=== PATIENT | female | born 1940 | race African-American/Black ===

== ENCOUNTER 2024-12-22 03:56 | Inpatient (IN) | payer MEDICARE ==
[~2024-12-22] VITALS: Ht 172.7 cm; Wt 108.9 kg
[2024-12-22 04:00] VITALS: O2SAT 97
[2024-12-22 04:24] LABS: BASOPHILS % 1.2 % (0.0-2.0); EOSINOPHILS % 0.6 % (0.0-5.0); HEMATOCRIT. 31.9 % (36.0-48.0); HEMOGLOBIN. 10.3 g/dL (12.0-16.0); LYMPHOCYTES % 24.5 % (20.0-50.0); MEAN PLATELET VOLUME 7.2 fl (7.4-10.4); MONOCYTES % 7.1 % (2.0-8.0); NEUTROPHILS % 66.6 % (40.0-76.0); PLATELET 178 x1000/uL (130-400); RED BLOOD CELL COUNT 3.81 mill/uL (4.2-5.4); RED CELL DISTRIBUTION WIDTH 17.6 % (11.6-14.6)
[2024-12-22 04:37] LABS: CREATININE 1.1 mg/dL (0.6-1.0)
[2024-12-22 04:38] LABS: TROPONIN I HIGH SENSITIVITY 25 ng/L (3.0-34); UREA NITROGEN BLOOD 19 mg/dL (9-23)
[2024-12-22 04:39] LABS: ASPARTATE AMINOTRANSFERASE 126 IU/L (<34)
[2024-12-22 04:40] LABS: BILIRUBIN DIRECT 0.2 mg/dL (<=3.0); BILIRUBIN TOTAL 0.5 mg/dL (0.1-1.0); PROTEIN TOTAL 6.3 g/dL (6.0-8.3)
[2024-12-22 04:50] LABS: INR 1.0
[2024-12-22] MEDS: MORPHINE SULFATE 2 MG/ML INJ (NOT FOR IM USE) IV ONE (05:15)
[2024-12-22] MEDS ORDERED: ACETAMINOPHEN 325MG TABLET PO PRN (05:30)
[2024-12-22] MEDS ORDERED: DEXTROSE 50% WATER 50ML SYRINGE IV PRN (05:30)
[2024-12-22] MEDS ORDERED: IPRATROPIUM/ALBUTEROL 0.5-3(2.5)MG/3ML NEB HHN PRN (05:30)
[2024-12-22 07:07] LABS: CREATINE KINASE MB FRACTION 0.8 ng/mL (0.5-3.6)
[2024-12-22 07:10] LABS: TROPONIN I HIGH SENSITIVITY 436.0 ng/L (3.0-34)
[2024-12-22 07:30] VITALS: BP 186/102; PULSE 100; RESP 18; TEMP 36.3068
[2024-12-22 08:00] VITALS: BP 186/102; PULSE 100; PULSE 60; RESP 18; TEMP 36.2; TEMP 36.3; O2SAT 100; O2SAT 93
[2024-12-22 08:31] LABS: FOLIC ACID (FOLATE) SERUM 8.38 ng/mL (>5.38); VITAMIN B12 SERUM 415 pg/mL (211-911)
[2024-12-22] MEDS: PANTOPRAZOLE SODIUM 40 MG/VIAL IV SCH (09:36)
[2024-12-22] MEDS: FUROSEMIDE 20MG/2ML VIAL IVP SCH (09:36)
[2024-12-22] MEDS: PREDNISONE 5MG TABLET PO SCH (09:36)
[2024-12-22] MEDS: ENOXAPARIN 40MG/0.4ML SYR SUBCUT SCH (09:37)
[2024-12-22] MEDS: AMLODIPINE 10MG TABLET PO SCH (09:38)
[2024-12-22] MEDS: LEVOTHYROXINE SODIUM 50MCG TABLET PO SCH (09:42)
[2024-12-22 10:22] LABS: CLARITY URINE CLOUDY (CLEAR); COLOR URINE YELLOW (YELLOW); GLUCOSE URINE NEGATIVE (NEGATIVE); KETONES URINE NEGATIVE (NEGATIVE); LEUKOCYTE ESTERASE URINE TRACE (NEGATIVE); NITRITE URINE NEGATIVE (NEGATIVE); OCCULT BLOOD URINE NEGATIVE (NEGATIVE); PH URINE 7.0 (4.5-8.0); PROTEIN URINE NEGATIVE (NEGATIVE); SPECIFIC GRAVITY URINE 1.011 (1.005-1.030); UROBILINOGEN URINE 1.0 E.U./dL (0.2-1.0)
[2024-12-22 10:44] LABS: BACTERIA URINE 4+; SQUAMOUS EPITHELIAL CELL URINE 1+ /lpf (RARE/1+); YEAST URINE NONE SEEN
[2024-12-22 10:53] LABS: *AMPHETAMINES SCREEN URINE NEGATIVE (NEGATIVE); *BARBITURATES SCREEN URINE NEGATIVE (NEGATIVE); *BENZODIAZEPINES SCREEN URINE NEGATIVE (NEGATIVE); *COCAINE SCREEN URINE NEGATIVE (NEGATIVE); CANNABINOID URINE SCREEN NEGATIVE (NEGATIVE); ECSTASY MDMA SCREEN URINE NEGATIVE (NEGATIVE); METHADONE URINE SCREEN NEGATIVE (NEGATIVE); OPIATES URINE SCREEN NEGATIVE (NEGATIVE); PHENCYCLIDINE URINE SCREEN NEGATIVE (NEGATIVE)
[2024-12-22 11:11] LABS: BG BASE EXCESS 3.4 mmol/L (-2.0-3.0); BG CARBOXYHEMOGLOBIN 0.7 % (0.5-1.5); BG DEOXYHEMOGLOBIN 10.5 % (0.0-5.0); BG FLOW(L/min) 2.00 L/min; BG FRACTION INSPIRED OXYGEN 28; BG HCO3 ACT 26.2 mmol/L (21.0-28.0); BG METHEMOGLOBIN 0.3 % (0.5-1.5); BG OXYGEN SATURATION 89.4 % (94.0-98.0); BG OXYHEMOGLOBIN 88.5 % (94.0-98.0); BG PCO2 33.7 mmHg (32.0-45.0); BG PH 7.509 (7.350-7.450); BG PO2 55.0 mmHg (83.0-108.0); BG SAMPLE SITE LEFT RADIAL; BG TOTAL HEMOGLOBIN 11.0 g/dL (12.0-16.0); BG VENT MODE NASAL CANNULA
[2024-12-22 12:00] VITALS: BP 158/90; PULSE 60; RESP 18; TEMP 36.3; O2SAT 100
[2024-12-22] MEDS: ASPIRIN 81MG TABLET PO SCH (13:13)
[2024-12-22] MEDS: ENOXAPARIN 80MG/0.8ML SYR SUBCUT NR (13:13)
[2024-12-22] MEDS: DIPHENHYDRAMINE 50MG CAPSULE PO NR (13:13)
[2024-12-22] MEDS: PREDNISONE 20MG TABLET PO NR ×2 (13:13→20:00)
[2024-12-22] MEDS: LOSARTAN 50 MG TABLET PO SCH (13:15)
[2024-12-22 16:00] VITALS: BP 95/67; PULSE 122; RESP 18; TEMP 36.2; O2SAT 100
[2024-12-22] MEDS ORDERED: DIPHENHYDRAMINE 50MG CAPSULE PO NR (16:30)
[2024-12-22 20:00] VITALS: BP 132/82; PULSE 96; RESP 18; TEMP 36.4; O2SAT 100
[2024-12-22] MEDS: ENOXAPARIN 100MG/ML SYR SUBCUT SCH (20:44)
[2024-12-22] MEDS ORDERED: ENOXAPARIN 120MG/0.8ML SYR SUBCUT SCH (23:00)
[2024-12-23] VITALS: BP 126/84; PULSE 95; RESP 18; TEMP 35.8; O2SAT 95
[2024-12-23 04:00] VITALS: BP 143/63; PULSE 95; RESP 18; TEMP 36.1; O2SAT 95
[2024-12-23 08:00] VITALS: BP 145/89; PULSE 90; RESP 19; TEMP 36.4; O2SAT 97
[2024-12-23 09:13] LABS: BASOPHILS % 0.1 % (0.0-2.0); EOSINOPHILS % 0.0 % (0.0-5.0); HEMATOCRIT. 33.7 % (36.0-48.0); HEMOGLOBIN. 10.9 g/dL (12.0-16.0); LYMPHOCYTES % 11.4 % (20.0-50.0); MEAN PLATELET VOLUME 7.4 fl (7.4-10.4); MONOCYTES % 5.0 % (2.0-8.0); NEUTROPHILS % 83.5 % (40.0-76.0); PLATELET 196 x1000/uL (130-400); RED BLOOD CELL COUNT 4.08 mill/uL (4.2-5.4); RED CELL DISTRIBUTION WIDTH 16.9 % (11.6-14.6)
[2024-12-23 09:36] LABS: T4 FREE 1.3 ng/dL (0.89-1.76)
[2024-12-23 09:38] LABS: CREATININE 1.1 mg/dL (0.6-1.0)
[2024-12-23 09:39] LABS: UREA NITROGEN BLOOD 17.0 mg/dL (9-23)
[2024-12-23 09:41] LABS: ASPARTATE AMINOTRANSFERASE 35 IU/L (<34); BILIRUBIN DIRECT 0.2 mg/dL (<=3.0); BILIRUBIN TOTAL 0.8 mg/dL (0.1-1.0); PROTEIN TOTAL 6.4 g/dL (6.0-8.3)
[2024-12-23] MEDS: PREDNISONE 20MG TABLET PO NR ×3 (11:17→21:02)
[2024-12-23 12:00] VITALS: BP 124/70; PULSE 98; RESP 19; TEMP 36.6; O2SAT 98
[2024-12-23 16:00] VITALS: BP 137/76; PULSE 91; RESP 19; TEMP 36.4; O2SAT 97
[2024-12-23 20:00] VITALS: BP 132/75; PULSE 92; RESP 18; TEMP 36.3; O2SAT 98
[2024-12-23] MEDS: DIPHENHYDRAMINE 50MG CAPSULE PO NR (21:02)
[2024-12-24] VITALS: BP 138/84; PULSE 96; RESP 19; TEMP 36.7; O2SAT 97
[2024-12-24] MEDS ORDERED: IOHEXOL-350 100 ML BOTTLE ONE (00:20)
[2024-12-24 04:00] VITALS: BP 120/76; PULSE 93; RESP 17; TEMP 36.4; O2SAT 100
[2024-12-24 08:00] VITALS: BP 138/70; PULSE 98; RESP 18; TEMP 36.1; O2SAT 99
[2024-12-24] MEDS: ACETAMINOPHEN 325MG TABLET PO PRN (11:11)
[2024-12-24 12:00] VITALS: BP 99/51; PULSE 107; RESP 18; TEMP 36.3; O2SAT 95
[2024-12-24] MEDS: LACTULOSE 20G/30ML UDC PO SCH (14:58)
[2024-12-24 16:00] VITALS: BP 110/64; PULSE 100; RESP 18; TEMP 36.4; O2SAT 97
[2024-12-24 20:00] VITALS: BP 102/51; PULSE 100; RESP 18; TEMP 36.4; O2SAT 99
[2024-12-24] MEDS: SULFAMETHOXAZOLE/TRIMETHOPRIM 800/160MG TABLET PO SCH (21:00)
[2024-12-25] VITALS: BP 103/55; PULSE 98; RESP 18; TEMP 36.4; O2SAT 99
[2024-12-25] MEDS: NITROGLYCERIN 0.4MG TABLET SL SL PRN (01:49)
[2024-12-25] MEDS: ONDANSETRON HCL 4MG/2ML INJ IV PRN (01:51)
[2024-12-25] MEDS: SODIUM CHLORIDE 0.9% 500 ML IV ONE ×3 (02:15→02:45)
[2024-12-25] MEDS: MIDODRINE HCL 5MG TABLET PO NR (02:20)
[2024-12-25 02:55] LABS: CREATINE KINASE MB FRACTION 0.8 ng/mL (0.5-3.6)
[2024-12-25 02:59] LABS: TROPONIN I HIGH SENSITIVITY 87.0 ng/L (3.0-34)
[2024-12-25 04:00] VITALS: BP 105/58; PULSE 101; RESP 19; TEMP 36.7; O2SAT 98
[2024-12-25 08:00] VITALS: BP 103/31; PULSE 91; RESP 16; TEMP 35.8; O2SAT 99
[2024-12-25] MEDS: MORPHINE SULFATE 4 MG/ML INJ (FOR IV/IM USE) IV SCH (11:28)
[2024-12-25 12:00] VITALS: BP 80/36; PULSE 85; RESP 16; TEMP 35.9; O2SAT 100
[2024-12-25] MEDS: LIDOCAINE 5% PATCH TOP SCH (15:28)
[2024-12-25 16:00] VITALS: BP 100/49; PULSE 77; RESP 18; TEMP 36.2; O2SAT 98
[2024-12-25] MEDS ORDERED: PANT40TA51 MT (16:08)
[2024-12-25] MEDS ORDERED: OXYB-52 MT (16:08)
[2024-12-25] MEDS ORDERED: VERA80TA7 MT (16:08)
[2024-12-25] MEDS ORDERED: ALBU90AE INH (16:08)
[2024-12-25] MEDS ORDERED: PRED10TA MT (16:08)
[2024-12-25] MEDS ORDERED: FURO-152 MT (16:08)
[2024-12-25] MEDS ORDERED: POTA-202 MT (16:08)
[2024-12-25] MEDS ORDERED: LEVO50TA8 MT (16:08)
[2024-12-25 20:00] VITALS: BP 120/45; PULSE 79; RESP 19; TEMP 36.6; O2SAT 98
[2024-12-26] VITALS: BP 104/44; PULSE 82; RESP 18; TEMP 36.5; O2SAT 99
[2024-12-26 04:00] VITALS: BP 96/54; PULSE 89; RESP 20; TEMP 35.9; O2SAT 100
[2024-12-26] MEDS: SODIUM CHLORIDE 0.9% 1,000 ML IV ONE (06:32)
[2024-12-26 08:00] VITALS: BP 100/46; PULSE 99; RESP 16; TEMP 36.1; O2SAT 95
[2024-12-26 12:00] VITALS: BP 91/33; PULSE 103; RESP 16; TEMP 36.1; O2SAT 99
[2024-12-26] MEDS: SODIUM CHLORIDE 0.9% 1,000 ML IV SCH ×2 (12:18→12:21)
[2024-12-26] MEDS: MIDODRINE HCL 5MG TABLET PO SCH (12:19)
[2024-12-26 16:00] VITALS: BP 106/54; PULSE 101; RESP 16; TEMP 36.2; O2SAT 96
[2024-12-26 20:00] VITALS: BP 107/47; PULSE 102; RESP 20; TEMP 36.7; O2SAT 98
[2024-12-27] VITALS (12 sets, daily range): BP systolic 103–131; BP diastolic 43–60; PULSE 72–96; RESP 16–20; TEMP 36.33624–37.3; O2SAT 89–99
[2024-12-27 13:22] LABS: UREA NITROGEN BLOOD 36.0 mg/dL (9-23)
[2024-12-27 13:45] LABS: MEAN PLATELET VOLUME 7.5 fl (7.4-10.4); PLATELET 162 x1000/uL (130-400); RED BLOOD CELL COUNT 1.91 mill/uL (4.2-5.4); RED CELL DISTRIBUTION WIDTH 17.2 % (11.6-14.6)
[2024-12-27 13:51] LABS: CREATININE 1.5 mg/dL (0.6-1.0)
[2024-12-27 13:54] LABS: HEMOGLOBIN. 5.2 g/dL (12.0-16.0)
[2024-12-27 13:55] LABS: HEMATOCRIT. 16.2 % (36.0-48.0)
[2024-12-27 14:11] LABS: BAND% 6.0 % (1.0-6.0); EOSINOPHILS % MANUAL 1.0 % (0.0-5.0); LYMPHOCYTES % MANUAL 19.0 % (20.0-60.0); METAMYELOCYTES % 1.0 % (0-0); MONOCYTES % MANUAL 3.0 % (2.0-8.0); NEUTROPHILS % MANUAL 70.0 % (45.0-75.0); NUCLEATED RED BLOOD CELLS 3 /100 WBC; PLATELET ESTIMATE NORMAL
[2024-12-27] MEDS: CEFAZOLIN 1000MG PREMIX 50 ML IV SCH (18:25)
[2024-12-28] VITALS (14 sets, daily range): BP systolic 109–150; BP diastolic 52–96; PULSE 72–90; RESP 14–26; TEMP 36.6–37.3; O2SAT 97–100
[2024-12-28 03:51] LABS: CREATININE 1.4 mg/dL (0.6-1.0); UREA NITROGEN BLOOD 26.0 mg/dL (9-23)
[2024-12-28 04:04] LABS: HEMATOCRIT. 24.2 % (36.0-48.0); HEMOGLOBIN. 8.1 g/dL (12.0-16.0); MEAN PLATELET VOLUME 7.4 fl (7.4-10.4); PLATELET 145 x1000/uL (130-400); RED BLOOD CELL COUNT 2.76 mill/uL (4.2-5.4); RED CELL DISTRIBUTION WIDTH 16.2 % (11.6-14.6)
[2024-12-28 13:08] LABS: BAND% 6.0 % (1.0-6.0); LYMPHOCYTES % MANUAL 14.0 % (20.0-60.0); MONOCYTES % MANUAL 6.0 % (2.0-8.0); NEUTROPHILS % MANUAL 74.0 % (45.0-75.0); NUCLEATED RED BLOOD CELLS 2 /100 WBC; PLATELET ESTIMATE NORMAL
[2024-12-28] MEDS: POTASSIUM CHLORIDE 20MEQ TABLET SR PO SCH (16:58)
[2024-12-29] VITALS (13 sets, daily range): BP systolic 126–193; BP diastolic 60–82; PULSE 58–95; RESP 12–26; TEMP 36.2–37.1; O2SAT 95–100
[2024-12-29] MEDS: HYDRALAZINE 20MG/ML VIAL IV PRN (08:31)
[2024-12-29] MEDS: ENOXAPARIN 100MG/ML SYR SUBCUT SCH (13:05)
[2024-12-29] MEDS: LACTULOSE 20G/30ML UDC PO PRN (18:24)
[2024-12-29] MEDS ORDERED: DEXTROSE 50% WATER 50ML SYRINGE IV PRN (21:30)
[2024-12-30] VITALS (8 sets, daily range): BP systolic 109–170; BP diastolic 53–116; PULSE 81–106; RESP 15–31; TEMP 36.6–37.2; O2SAT 97–100
[2024-12-30] MEDS: BLOOD SUGAR DIAGNOSTIC STRIP TEST SCH (07:30)
[2024-12-30 07:36] LABS: HEMATOCRIT. 26.5 % (36.0-48.0); HEMOGLOBIN. 9.0 g/dL (12.0-16.0); MEAN PLATELET VOLUME 6.8 fl (7.4-10.4); PLATELET 195 x1000/uL (130-400); RED BLOOD CELL COUNT 3.06 mill/uL (4.2-5.4); RED CELL DISTRIBUTION WIDTH 16.6 % (11.6-14.6)
[2024-12-30 07:53] LABS: CREATININE 1.0 mg/dL (0.6-1.0); UREA NITROGEN BLOOD 13 mg/dL (9-23)
[2024-12-30] MEDS ORDERED: MIDAZOLAM HCL 2 MG/2 ML VIAL ONE ×2 (09:29→10:04)
[2024-12-30] MEDS ORDERED: DIPHENHYDRAMINE 50MG/ML VIAL ONE (09:29)
[2024-12-30] MEDS ORDERED: IODIXANOL 320MG/ML 100 ML BOTTLE IV ONE ×2 (09:30→10:09)
[2024-12-30] MEDS ORDERED: HEPARIN 1000 UNITS/ML 10ML ONE ×3 (09:30→10:45)
[2024-12-30] MEDS ORDERED: FENTANYL CITRATE/PF 50MCG/ML 2ML VIAL ONE ×2 (09:30→10:02)
[2024-12-30] MEDS ORDERED: LIDOCAINE HCL 1% 20ML VIAL ONE (09:30)
[2024-12-30] MEDS ORDERED: METHYLPREDNISOLONE SOD SUCC 125MG/2ML (ACT-O-VIAL) ONE (09:30)
[2024-12-30] MEDS ORDERED: FAMOTIDINE 20MG/2ML VIAL IV ONE (09:30)
[2024-12-30] MEDS ORDERED: HYDRALAZINE 20MG/ML VIAL ONE (09:51)
[2024-12-30] MEDS ORDERED: ONDANSETRON HCL 4MG/2ML INJ ONE (10:22)
[2024-12-30 10:47] LABS: BAND% 2.0 % (1.0-6.0); LYMPHOCYTES % MANUAL 27.0 % (20.0-60.0); MONOCYTES % MANUAL 6.0 % (2.0-8.0); NEUTROPHILS % MANUAL 65.0 % (45.0-75.0); PLATELET ESTIMATE NORMAL
[2024-12-30] MEDS ORDERED: ATROPINE SULFATE 1MG/10ML SYR IV PRN (11:00)
[2024-12-30 14:13] LABS: HEMATOCRIT. 30.4 % (36.0-48.0); HEMOGLOBIN. 9.7 g/dL (12.0-16.0); MEAN PLATELET VOLUME 7.5 fl (7.4-10.4); PLATELET 204 x1000/uL (130-400); RED BLOOD CELL COUNT 3.43 mill/uL (4.2-5.4); RED CELL DISTRIBUTION WIDTH 16.7 % (11.6-14.6)
[2024-12-30] MEDS: SODIUM CHLORIDE 0.45% 1,000 ML IV SCH (14:38)
[2024-12-30 15:36] LABS: HEMATOCRIT. 28.4 % (36.0-48.0); HEMOGLOBIN. 9.2 g/dL (12.0-16.0); MEAN PLATELET VOLUME 7.4 fl (7.4-10.4); PLATELET 209 x1000/uL (130-400); RED BLOOD CELL COUNT 3.22 mill/uL (4.2-5.4); RED CELL DISTRIBUTION WIDTH 17.6 % (11.6-14.6)
[2024-12-30 16:14] LABS: LYMPHOCYTES % MANUAL 12.0 % (20.0-60.0); MONOCYTES % MANUAL 4.0 % (2.0-8.0); NEUTROPHILS % MANUAL 84.0 % (45.0-75.0); PLATELET ESTIMATE NORMAL
[2024-12-30 16:54] LABS: BAND% 9.0 % (1.0-6.0); LYMPHOCYTES % MANUAL 12.0 % (20.0-60.0); MONOCYTES % MANUAL 6.0 % (2.0-8.0); NEUTROPHILS % MANUAL 73.0 % (45.0-75.0); PLATELET ESTIMATE NORMAL
[2024-12-30] MEDS: APIXABAN 5 MG TABLET PO SCH (21:47)
[2024-12-31] VITALS: BP 129/72; PULSE 95; RESP 17; TEMP 36.3; O2SAT 98
[2024-12-31 04:00] VITALS: BP 146/85; PULSE 97; RESP 24; TEMP 36.2; O2SAT 96
[2024-12-31 07:28] LABS: HEMATOCRIT. 24.9 % (36.0-48.0); HEMOGLOBIN. 8.2 g/dL (12.0-16.0); MEAN PLATELET VOLUME 7.3 fl (7.4-10.4); PLATELET 202 x1000/uL (130-400); RED BLOOD CELL COUNT 2.87 mill/uL (4.2-5.4); RED CELL DISTRIBUTION WIDTH 17.3 % (11.6-14.6)
[2024-12-31 07:36] LABS: CREATININE 1.1 mg/dL (0.6-1.0); UREA NITROGEN BLOOD 15.0 mg/dL (9-23)
[2024-12-31 08:00] VITALS: BP 150/87; PULSE 103; RESP 19; TEMP 36.7; O2SAT 95
[2024-12-31] MEDS: DIPHENHYDRAMINE 50MG/ML VIAL IV ONE (08:52)
[2024-12-31 12:00] VITALS: BP 121/74; PULSE 93; RESP 17; TEMP 36.8; O2SAT 96
[2024-12-31 17:00] VITALS: BP 146/79; PULSE 92; RESP 18; TEMP 36.7; O2SAT 95
[2024-12-31 17:54] LABS: LYMPHOCYTES % MANUAL 10.0 % (20.0-60.0); METAMYELOCYTES % 1.0 % (0-0); MONOCYTES % MANUAL 2.0 % (2.0-8.0); MYELOCYTES % 2.0 % (0-0); NEUTROPHILS % MANUAL 85.0 % (45.0-75.0); PLATELET ESTIMATE NORMAL
[2024-12-31 20:46] VITALS: BP 112/65; RESP 26; TEMP 36.6; O2SAT 99
[2025-01-01 01:24] VITALS: BP 116/60; RESP 21; TEMP 36.2; O2SAT 98
[2025-01-01 04:00] VITALS: BP 118/75; PULSE 82; RESP 12; TEMP 36; O2SAT 99
[2025-01-01 08:00] VITALS: BP 136/72; PULSE 86; RESP 14; TEMP 36.8; O2SAT 99
[2025-01-01 08:50] LABS: HEMATOCRIT. 23.7 % (36.0-48.0); HEMOGLOBIN. 7.6 g/dL (12.0-16.0); MEAN PLATELET VOLUME 7.3 fl (7.4-10.4); PLATELET 199 x1000/uL (130-400); RED BLOOD CELL COUNT 2.67 mill/uL (4.2-5.4); RED CELL DISTRIBUTION WIDTH 17.5 % (11.6-14.6)
[2025-01-01 08:53] LABS: CREATININE 1.0 mg/dL (0.6-1.0)
[2025-01-01 08:54] LABS: UREA NITROGEN BLOOD 15 mg/dL (9-23)
[2025-01-01 08:56] LABS: PHOSPHORUS 1.8 mg/dL (2.5-4.9)
[2025-01-01 12:00] VITALS: BP 110/60; PULSE 87; RESP 19; TEMP 37; O2SAT 95
[2025-01-01] MEDS: POTASSIUM PHOSPHATE 30 MMOL in DEXT 5% WATER 490 ML IV SCH (12:19)
[2025-01-01] MEDS ORDERED: AMLO5TAB88 MT (12:40)
[2025-01-01] MEDS ORDERED: APIX5TAB MT (12:40)
[2025-01-01] MEDS ORDERED: LOSA50TA41 MT (12:40)
[2025-01-01 15:57] VITALS: BP 103/74; PULSE 87; RESP 16; TEMP 97.7
[2025-01-01 16:00] VITALS: BP 103/76; PULSE 87; RESP 16; TEMP 36.5; O2SAT 98
[2025-01-01 16:41] LABS: LYMPHOCYTES % MANUAL 14.0 % (20.0-60.0); METAMYELOCYTES % 2.0 % (0-0); MONOCYTES % MANUAL 7.0 % (2.0-8.0); MYELOCYTES % 2.0 % (0-0); NEUTROPHILS % MANUAL 75.0 % (45.0-75.0); PLATELET ESTIMATE NORMAL
== END 2025-01-01 18:27 | disposition home health service (06) | DRG 163 ==
LOC: ER 03:56 → 6WST 05:12 → EDBEDREQTM 05:19 → EDBEDREQ 05:19 → ENRESERV 06:30 → 6WST 12-26 20:13 → 5EST 12-27 21:11 → 3WST 12-30 10:52 → UNDODISIN 01-01 18:27
PROVIDERS: ADMIT Internal Medicine; ATTEND Internal Medicine
PROC: 30233N1 Transfusion of Nonautologous Red Blood Cells into Peripheral Vein, Percutaneous Approach (ICD-10-PCS; 2024-12-27)
PROC: B31TYZZ Fluoroscopy of Left Pulmonary Artery using Other Contrast (ICD-10-PCS; principal; 2024-12-30)
PROC: B31SYZZ Fluoroscopy of Right Pulmonary Artery using Other Contrast (ICD-10-PCS; 2024-12-30)
PROC: 4A023N6 Measurement of Cardiac Sampling and Pressure, Right Heart, Percutaneous Approach (ICD-10-PCS; 2024-12-30)
PROC: B51BYZZ Fluoroscopy of Right Lower Extremity Veins using Other Contrast (ICD-10-PCS; 2024-12-30)
PROC: 02CQ3ZZ Extirpation of Matter from Right Pulmonary Artery, Percutaneous Approach (ICD-10-PCS; 2024-12-30)
PROC: 02CR3ZZ Extirpation of Matter from Left Pulmonary Artery, Percutaneous Approach (ICD-10-PCS; 2024-12-30)
DX: I26.09 Other pulmonary embolism with acute cor pulmonale (principal); I21.A1 Myocardial infarction type 2; J96.20 Acute and chronic respiratory failure, unspecified whether with hypoxia or hypercapnia; I50.23 Acute on chronic systolic (congestive) heart failure; I82.431 Acute embolism and thrombosis of right popliteal vein; I11.0 Hypertensive heart disease with heart failure; I16.0 Hypertensive urgency; Z20.822 Contact with and (suspected) exposure to COVID-19; E03.9 Hypothyroidism, unspecified; D64.9 Anemia, unspecified; M35.3 Polymyalgia rheumatica; I49.3 Ventricular premature depolarization; Z99.81 Dependence on supplemental oxygen; Z79.01 Long term (current) use of anticoagulants; Z79.899 Other long term (current) drug therapy; Z88.8 Allergy status to other drugs, medicaments and biological substances
CPT/HCPCS: 36415; 36600; 37184; 37185; 71045; 71275; 74176; 75743; 75820; 75825; 80048; 80076; 80305; 80320; 81003; 82270; 82375; 82550; 82553; 82607; 82746; 82805; 82962; 83036; 83540; 83550; 83605; 83735; 83880; 84100; 84439; 84443; 84484; 85014; 85018; 85025; 85347; 85379; 86850; 86900; 86920; 87077; 87186; 87426; 93005; 93306; 93880; 93970; 97162; 97166; 99285; A4606; C1769; C1887; C1893; J0360; J0690; J1200; J1308; J1644; J1650; J1938; J2003; J2250; J2270; J2405; J2470; J2919; J3010; J3490; J7030; J7060; J7512; P9016; Q0163; Q9967; C1757; G0480

== ENCOUNTER 2025-03-12 17:00 | Inpatient (IN) | payer MEDICARE ==
[~2025-03-12] VITALS: Ht 172.7 cm; Wt 94.9 kg
[~2025-03-12 17:00] MED LIST: ALBU90AE INH; AMLO5TAB88 MT; APIX5TAB MT; FURO-152 MT; LEVO50TA8 MT; LOSA50TA41 MT; OXYB-52 MT; PANT40TA51 MT; POTA-202 MT; PRED10TA MT
[2025-03-12 17:02] VITALS: O2SAT 95
[2025-03-12] MEDS: SODIUM CHLORIDE 0.9% 1,000 ML IV ONE (18:30)
[2025-03-12 18:41] LABS: HEMATOCRIT. 25.7 % (36.0-48.0); HEMOGLOBIN. 8.5 g/dL (12.0-16.0); MEAN PLATELET VOLUME 6.9 fl (7.4-10.4); PLATELET 130 x1000/uL (130-400); RED BLOOD CELL COUNT 3.19 mill/uL (4.2-5.4); RED CELL DISTRIBUTION WIDTH 17.7 % (11.6-14.6)
[2025-03-12 18:57] LABS: INR 1.2
[2025-03-12 18:58] LABS: CREATININE 0.6 mg/dL (0.6-1.0)
[2025-03-12 18:59] LABS: PROTEIN TOTAL 5.1 g/dL (6.0-8.3); UREA NITROGEN BLOOD < 5 mg/dL (9-23)
[2025-03-12 19:00] LABS: ASPARTATE AMINOTRANSFERASE 11 IU/L (<34); BILIRUBIN DIRECT 0.4 mg/dL (<=3.0); TROPONIN I HIGH SENSITIVITY < 4 ng/L (3.0-34)
[2025-03-12] MEDS: VANCOMYCIN 1G PREMIX 200 ML IV ONE (19:00)
[2025-03-12 19:01] LABS: BILIRUBIN TOTAL 0.8 mg/dL (0.1-1.0)
[2025-03-12 21:24] LABS: BAND% 2.0 % (1.0-6.0); LYMPHOCYTES % MANUAL 5.0 % (20.0-60.0); MONOCYTES % MANUAL 3.0 % (2.0-8.0); NEUTROPHILS % MANUAL 90.0 % (45.0-75.0); NUCLEATED RED BLOOD CELLS 1 /100 WBC; PLATELET ESTIMATE NORMAL
[2025-03-12] MEDS ORDERED: DEXTROSE 50% WATER 50ML SYRINGE IV PRN (22:15)
[2025-03-12] MEDS ORDERED: LORAZEPAM 0.5MG TABLET PO PRN (22:15)
[2025-03-12] MEDS ORDERED: ONDANSETRON HCL 4MG/2ML INJ IV PRN (22:15)
[2025-03-12] MEDS ORDERED: DOCUSATE SODIUM 100MG CAPSULE PO PRN (22:15)
[2025-03-12] MEDS ORDERED: ACETAMINOPHEN 325MG TABLET PO PRN ×2 (22:15)
[2025-03-12] MEDS ORDERED: CLONIDINE 0.1MG TABLET PO PRN (22:15)
[2025-03-12] MEDS ORDERED: GUAIFENESIN 200MG/10ML SUGAR FREE UDC PO PRN (22:15)
[2025-03-12] MEDS ORDERED: IPRATROPIUM/ALBUTEROL 0.5-3(2.5)MG/3ML NEB HHN PRN (22:15)
[2025-03-12 22:59] LABS: TRIGLYCERIDE 125 mg/dL (0-150)
[2025-03-12 23:00] LABS: LDL CHOLESTEROL 59 mg/dL (5-100)
[2025-03-12 23:01] LABS: PHOSPHORUS 3.3 mg/dL (2.5-4.9)
[2025-03-12 23:03] LABS: FOLIC ACID (FOLATE) SERUM 3.05 ng/mL (>5.38); VITAMIN B12 SERUM 809 pg/mL (211-911)
[2025-03-12] MEDS: MAGNESIUM 2 G PREMIX 50 ML IV NR (23:15)
[2025-03-13] VITALS (7 sets, daily range): BP systolic 123–155; BP diastolic 65–89; PULSE 83–97; RESP 18–20; TEMP 36.1–37.2; O2SAT 97–100
[2025-03-13] MEDS: APIXABAN 5 MG TABLET PO SCH (00:08)
[2025-03-13] MEDS ORDERED: VANC125C18 MT (01:27)
[2025-03-13] MEDS ORDERED: NEOM28.37 TP (01:27)
[2025-03-13] MEDS ORDERED: TRIA60LO10 TP (01:27)
[2025-03-13] MEDS ORDERED: TAMS-54 PO (01:27)
[2025-03-13] MEDS: POTASSIUM PHOSPHATE 20 MMOL in DEXT 5% WATER 243.3333 ML IV NR (01:33)
[2025-03-13 06:49] LABS: BASOPHILS % 0.1 % (0.0-2.0); EOSINOPHILS % 0.1 % (0.0-5.0); HEMATOCRIT. 24.2 % (36.0-48.0); HEMOGLOBIN. 8.0 g/dL (12.0-16.0); LYMPHOCYTES % 10.6 % (20.0-50.0); MEAN PLATELET VOLUME 7.2 fl (7.4-10.4); MONOCYTES % 4.5 % (2.0-8.0); NEUTROPHILS % 84.7 % (40.0-76.0); PLATELET 116 x1000/uL (130-400); RED BLOOD CELL COUNT 2.99 mill/uL (4.2-5.4); RED CELL DISTRIBUTION WIDTH 17.6 % (11.6-14.6)
[2025-03-13] MEDS: BLOOD SUGAR DIAGNOSTIC STRIP TEST SCH (07:48)
[2025-03-13] MEDS: INSULIN LISPRO 100 UNITS/ML SUBCUT SCH (07:48)
[2025-03-13 07:53] LABS: CREATININE 0.5 mg/dL (0.6-1.0); UREA NITROGEN BLOOD < 5 mg/dL (9-23)
[2025-03-13] MEDS: POTASSIUM CHLORIDE 20MEQ TABLET SR PO SCH (08:37)
[2025-03-13 11:13] LABS: TROPONIN I HIGH SENSITIVITY 4 ng/L (3.0-34)
[2025-03-13] MEDS: VANCOMYCIN 125MG/2.5ML ORAL SYR PO SCH (12:32)
[2025-03-13] MEDS: SODIUM CHLORIDE 0.9% 500 ML IV ONE (14:30)
[2025-03-13 16:59] LABS: TROPONIN I HIGH SENSITIVITY 6 ng/L (3.0-34)
[2025-03-13] MEDS ORDERED: VANCOMYCIN 1G PREMIX 200 ML IV SCH (19:00)
[2025-03-13] MEDS: ENOXAPARIN 100MG/ML SYR SUBCUT SCH (22:02)
[2025-03-14] VITALS (7 sets, daily range): BP systolic 119–158; BP diastolic 69–82; PULSE 95–101; RESP 18–20; TEMP 35.9–37.2; O2SAT 97–100
[2025-03-14 06:31] LABS: CREATININE 0.5 mg/dL (0.6-1.0); UREA NITROGEN BLOOD < 5 mg/dL (9-23)
[2025-03-14 06:33] LABS: PHOSPHORUS 2.3 mg/dL (2.5-4.9)
[2025-03-14 06:37] LABS: BASOPHILS % 0.1 % (0.0-2.0); EOSINOPHILS % 0.5 % (0.0-5.0); HEMATOCRIT. 22.7 % (36.0-48.0); HEMOGLOBIN. 7.7 g/dL (12.0-16.0); LYMPHOCYTES % 10.4 % (20.0-50.0); MEAN PLATELET VOLUME 6.9 fl (7.4-10.4); MONOCYTES % 3.5 % (2.0-8.0); NEUTROPHILS % 85.5 % (40.0-76.0); PLATELET 101 x1000/uL (130-400); RED BLOOD CELL COUNT 2.82 mill/uL (4.2-5.4); RED CELL DISTRIBUTION WIDTH 18.2 % (11.6-14.6)
[2025-03-14] MEDS ORDERED: MAGN500C4 MT (11:29)
[2025-03-14] MEDS ORDERED: APIX5TAB MT (11:29)
[2025-03-14] MEDS ORDERED: POTA-204 PO (11:29)
[2025-03-14] MEDS ORDERED: LOSA50TA41 MT (11:29)
[2025-03-14] MEDS: MAGNESIUM GLUCONATE 500MG TABLET PO SCH (12:28)
== END 2025-03-14 20:30 | disposition home or self-care (01) | DRG 641 ==
LOC: ER 17:00 → 7WST 19:58 → EDBEDREQTM 20:00 → EDBEDREQ 20:00 → ENRESERV 23:09
PROVIDERS: ADMIT Internal Medicine; ATTEND Internal Medicine
DX: E86.1 Hypovolemia (principal); A04.72 Enterocolitis due to Clostridium difficile, not specified as recurrent; E87.20 Acidosis, unspecified; I11.0 Hypertensive heart disease with heart failure; D64.9 Anemia, unspecified; E83.42 Hypomagnesemia; E11.9 Type 2 diabetes mellitus without complications; Z79.01 Long term (current) use of anticoagulants; E87.6 Hypokalemia; I25.10 Atherosclerotic heart disease of native coronary artery without angina pectoris; Z86.711 Personal history of pulmonary embolism; Z74.01 Bed confinement status; Z79.899 Other long term (current) drug therapy; Z78.9 Other specified health status
CPT/HCPCS: 36415; 71045; 80048; 80061; 80076; 82607; 82746; 82962; 83036; 83540; 83550; 83605; 83735; 84100; 84145; 84484; 85025; 93005; 96365; 99285; A4606; J1650; J3373; J3475; J3490; J7030; J7060